=== PATIENT | male | born 1955 ===

== ENCOUNTER 2018-02-13 10:26 | Day surgery (SDC) | payer BC ==
[2018-02-12 09:02] VITALS: BMI 31.1
[2018-02-13] MEDS ORDERED: Lidocaine 4% (Laryng-O-Jet) Kit MM ONE (12:08)
[2018-02-13] MEDS ORDERED: Midazolam 2 MG/2 ML VIAL ONE ×2 (12:37→13:58)
[2018-02-13] MEDS ORDERED: Propofol 10 mg/ml Inj (20 ML) ONE (12:37)
[2018-02-13] MEDS ORDERED: Nitroglycerin 50mg in D5W 0 MG/0 ML BOTTLE IV ONE (13:27)
[2018-02-13] MEDS ORDERED: Verapamil 0 ML ONE (13:27)
[2018-02-13 14:27] LABS: ARTERIAL BLOOD GAS HCO3 24.6 mmol/L (21-28); ARTERIAL BLOOD GAS PCO2 42 mm/Hg (35-45); ARTERIAL BLOOD GAS PH 7.38 (7.35-7.45); ARTERIAL BLOOD GAS PO2 97 mm/Hg (80-100); ARTERIAL BLOOD GAS TCO2 26.1 mmol/L (22-28)
[2018-02-13 14:28] LABS: ARTERIAL BLOOD GAS O2 SAT 97.3 % (95-98)
[2018-02-13 14:30] LABS: VENOUS BLOOD GAS PCO2 40 mmHg (40-60); VENOUS BLOOD PH 7.33 (7.32-7.43)
[2018-02-13 14:31] LABS: VENOUS BLOOD GAS BASE EXCESS -4.5 mmol/L (0.0-2.0); VENOUS BLOOD GAS PO2 38 mm/Hg (30-55)
--- NOTE | 2018-02-13 23:07 | CARDCATH ---
PROCEDURE DATE: 02/13/2018 INDICATION: Evaluation for aortic stenosis. INDICATION: Marlo Pedroza is a 62-year-old male, referred to me as a second opinion for evaluation of severe aortic stenosis which was noted on the echocardiogram for further evaluation. The patient had one episode of syncope and therefore underwent YENNIFER and cardiac catheterization for further evaluation and treatment. PROCEDURES PERFORMED: Complete heart catheterization with selective left and right coronary angiogram, left ventriculogram, simultaneous LV and AO gradient pressures with Tiago pigtail catheter, right heart cath with hemodynamics and saturation. RIGHT HEART CATHETERIZATION FINDINGS: RA pressure mean was 8, RVEDP 9, PA pressure 35/80 with mean PA pressure of 19, pulmonary capillary wedge pressure was 16. Using the thermodilution method, cardiac output was calculated to be 5.03 L per minute, cardiac index of 0.75 L per minute. CORONARY ANATOMY: Left main is a large-sized vessel, bifurcating to LAD and circ. LAD is a large-sized vessel, free of any obstructive disease, proximal to distal nonobstructive 0%, diagonals 0%. Left circumflex proximal to distal 0%. RCA proximal to distal 0%. LVEF normal, 55% to 60%. IMPRESSION: Transaortic [id number]-id-[id number] gradient of 20 mmHg consistent with [id number] aortic stenosis, normal coronaries, normal ejection fraction. RECOMMENDATIONS: Aggressive medical management. Risk factor modification. Javier Contreras MD
== END 2018-02-13 17:50 | disposition home or self-care (01) ==
LOC: C.CATHLAB 10:26
PROVIDERS: ATTEND Internal Medicine Interventional Cardiology
DX: I35.0 Nonrheumatic aortic (valve) stenosis (principal)
CPT/HCPCS: 82803; 93312; 93460; 99152; 99153; C1714; C1760; C1769; C1887; C1894; J1644; J2250; J2704; J3010; Q9967